=== PATIENT | male | born 1950 | race Caucasian/White ===

== ENCOUNTER 2019-01-25 11:02 | Inpatient (IN) ==
--- NOTE | 2019-01-10 15:56 | PAT Medication Instructions ---
Medication Instructions Date of Service January 10, 2019 Home Medications Atorvastatin 1 dose PO QPM ascorbic acid (vitamin C) [Vitamin 1 tab PO QAM aspirin [Aspir-81] 1 tab PO QAM cholecalciferol (vitamin D3) 1,000 unit PO QAM cyanocobalamin (vitamin B-12) 2,000 mcg PO QAM diclofenac sodium 50 mg PO BID dulaglutide [Trulicity] 1 dose SUBCUT WK insulin NPH isoph U-100 human 22 unit SUBCUT HS lisinopril 10 mg PO QAM metformin 1,000 mg PO BID omega 6-lsp-buh-fish oil [Fish Oil] 1 cap PO QAM Continue as directed dulaglutide [Trulicity] 1 dose SUBCUT WK ASK your surgeon for instructions diclofenac sodium 50 mg PO BID STOP taking 2 weeks before surgery (or as soon as possible if surgery is within 2 weeks) omega 7-xtc-vzr-fish oil [Fish Oil] 1 cap PO QAM DO NOT take the morning of surgery ascorbic acid (vitamin C) [Vitamin 1 tab PO QAM cholecalciferol (vitamin D3) 1,000 unit PO QAM cyanocobalamin (vitamin B-12) 2,000 mcg PO QAM lisinopril 10 mg PO QAM metformin 1,000 mg PO BID Take morning of surgery With a small sip of water, OTHERWISE NOTHING TO EAT OR DRINK AFTER MIDNIGHT: aspirin [Aspir-81] 1 tab PO QAM Take evening before surgery Atorvastatin 1 dose PO QPM insulin NPH isoph U-100 human 22 unit SUBCUT HS metformin 1,000 mg PO BID Other Notes If you have any questions please call us at [phone] or [phone] or [phone] or [phone]
--- NOTE | 2019-01-11 15:12 | XRay Report ---
XR chest Pre-admission PA/Lat CLINICAL HISTORY: Preoperative chest COMPARISON STUDY: No previous studies for comparison. FINDINGS: The cardiac and mediastinal contours are normal. There is no evidence of focal pulmonary co nsolidation. There is no evidence of failure. No pleural effusions are visualized.[ The patient appea rs mildly hyperexpanded. There is an azygos fissure. IMPRESSION: No active disease in the chest. Electronically signed by: Harry Agarwal M.D. 01/11/2019 3:11 PM
[2019-01-11 15:25] LABS: Basophils # (auto) 0.05 K/uL (0-0.2); Basophils % (auto) 0.6 %; Eosinophils # (auto) 0.21 K/uL (0-0.5); Eosinophils % (auto) 2.5 %; Hematocrit (blood only) 39.7 % (42-52); Hemoglobin 13.7 g/dL (14.0-18.0); Immature Granulocytes # (auto) 0.04 K/uL (0.00-0.02); Immature Granulocytes % (auto) 0.5 %; Lymphocytes # (auto) 1.99 K/uL (1.2-3.4); Lymphocytes % (auto) 23.5 %; Mean Corpuscular Hgb Conc 34.5 g/dL (32-36); Mean Corpuscular Volume 89.4 fL (80-100); Mean Platelet Volume 9.9 fL (7.4-10.4); Monocytes # (auto) 0.64 K/uL (0.11-0.59); Monocytes % (auto) 7.6 %; Neutrophils # (auto) 5.53 K/uL (1.4-6.5); Neutrophils % (auto) 65.3 %; Platelet Count 269 K/uL (130-400); RDW Standard Deviation 49.2 fL (36.4-46.3); Red Blood Count 4.44 M/uL (4.7-6.1); White Blood Count 8.46 K/uL (4.8-10.8)
[2019-01-11 15:26] LABS: Appearance Urine Clear (Clear); Bilirubin Urine Negative (Negative); Blood Urine Negative (Negative); Color Urine Yellow; Glucose Urine UA Negative (Negative); Ketones Urine Negative (Negative); Leukocyte Esterase Urine Negative (Negative); Nitrite Urine Negative (Negative); Protein Urine Negative (Negative); Specific Gravity Urine 1.024 (1.000-1.030); Urobilinogen Urine Negative (Negative)
[2019-01-11 15:35] LABS: Partial Thromboplastin Ratio 0.9; Partial Thromboplastin Time 24.6 Seconds (21.0-31.0); Prothrombin Time 10.5 Seconds (9.0-12.0)
--- NOTE | 2019-01-11 15:35 | Anesthesiology Consultation ---
Date of Service January 11, 2019 Assessment & Plan (1) Encounter for pre-operative examination: - PCP: 01/19/19: Mild anemia noted. "Using revised cardiac index, patient is estimated low risk of adverse outcome with noncardiac surgery. Patient is acceptable risk for surgery." - Check [facility] AM DOS Chart Review Chart Review: Acceptable Risk for Surgery and Patient seen in Pre Admission Testing Teaching & Discussion Pre-Anesthesia Teaching/Discussion Notes: Instructed NPO after midnight before surgery,except medications with 15 cc of water. Medication instructions pr ovided according to the PAT guidelines. History Surgery Operation Date: 01/25/19 13:05 Proposed Procedures p L3-S1 Decompression and Fusion, Spinal Cord Monitoring - Ezequiel Moore, Height/Weight Height: 5 ft 7 in Weight: 118.5 kg Allergies Allergy/AdvReac Type Severity Reaction Status Date / Time No Known Allergies Allergy Verified 01/25/19 11:30 Medications Home Medications Medication Instructions Recorded Confirmed Last Taken ascorbic acid (vitamin C) [Vitamin 1 tab PO QAM 01/07/19 01/07/19 01/11/19 C] aspirin [Aspir-81] 1 tab PO QAM 01/07/19 01/07/19 01/25/19 08:00 cholecalciferol (vitamin D3) 1,000 unit PO QAM 01/07/19 01/07/19 01/11/19 [Vitamin D3] cyanocobalamin (vitamin B-12) 2,000 mcg PO QAM 01/07/19 01/07/19 01/11/19 [Vitamin B-12] diclofenac sodium 50 mg PO BID 01/07/19 01/07/19 01/17/19 dulaglutide [Trulicity] 1 dose SUBCUT WK 01/07/19 01/07/19 01/22/19 insulin NPH isoph U-100 human 22 unit SUBCUT HS 01/07/19 01/07/19 01/24/19 21:00 [Humulin N NPH Insulin KwikPen] lisinopril 10 mg PO BID 01/07/19 01/25/19 01/24/19 21:00 metformin 1,000 mg PO BID 01/07/19 01/07/19 01/24/19 21:00 omega 3-zgd-ldc-fish oil [Fish Oil] 1 cap PO QAM 01/07/19 01/07/19 01/11/19 atorvastatin 20 mg PO PM 01/11/19 01/25/19 01/24/19 21:00 Active Medications Generic Name Dose Route Start Last Admin Trade Name Fede PRN Reason Stop Dose Admin Acetaminophen 1,000 mg 01/25/19 06:00 01/25/19 11:55 Tylenol PO 01/25/19 18:00 1,000 mg PREOP ADAM Administration Celecoxib 200 mg 01/25/19 06:00 01/25/19 11:55 Celebrex PO 01/25/19 18:00 200 mg PREOP ADAM Administration Gabapentin 300 mg 01/25/19 06:00 01/25/19 11:55 Neurontin PO 01/25/19 18:00 300 mg PREOP ADAM Administration Lactated Ringer's 1,000 mls @ 15 mls/hr 01/25/19 06:00 01/25/19 11:56 Lr IV 01/26/19 05:59 15 mls/hr .Q24H ADAM Administration Past Medical History Medical History Diabetes IDDM History of kidney stones History of prostate cancer S/P PROSTATECTOMY; +XRT (9+ YEARS AGO) Sleep apnea CPAP Spinal stenosis Exercise / Class Metabolic Activity III < 4 Walking/Shop/Light housework (USES CANE PRN) Past Surgical History Surgical History History of arthroscopy of left knee History of colonoscopy History of hernia surgery History of prostatectomy History of removal of cyst NECK RIGHT SIDE History of tonsillectomy History of total left hip arthroplasty Past Anesthesia History No Hx of Anesthesia Complications *Patient adopted- unknown family history* History of PONV No Hx of PONV and No Hx of Motion Sickness Social History Smoking Status: Current every day smoker tobacco type: pipe (DAILY USE) and cigars (DAILY USE) Do You Dip or Chew Tobacco: No Hx Alcohol Use: Yes (RARE) Alcohol type: beer alcohol intake frequency: holidays/special occasions only Hx Substance Use: Yes (HX OF MARIJUANA USE SEVERAL YEARS AGO) Review of Systems Patient reports LBP with RLE radiculopathy/neuropathy. Patient denies chest pain, shortness of breath, reflux, cough, wheezing, palpitations. Physical Exam Vital Signs Last Vital Signs Temp 37.0 C 01/25/19 11:40 Pulse 78 01/25/19 11:40 Resp 18 01/25/19 11:40 BP 116/82 01/25/19 11:40 Pulse Ox 97 01/25/19 11:40 VITALS BP 114/69 P 82 TEMP 97.4 SP02 94%RA RESP 20 PHYSICAL Full neck and c-spine range of motion. Full TMJ range of motion. TMD 4 finger breaths Mallampati Score 2 Dentition: lower partial Lungs: clear throughout to auscultation Cardiac: regular rate and rhythm, no murmurs noted Spine: normal Carotid arteries: negative bruit Extremities: no edema Thick neck Trimmed rosas Testing Electrocardiogram Date: 01/11/19 Findings: + NSR @ (81) Chest X-Ray Date: 01/11/19 Findings: + NAD The patient appears mildly hyperexpanded. There is an azygos fissure. Laboratory Results 01/11/19 14:55 01/11/19 14:55 PT 10.5 Seconds (9.0-12.0) 01/11/19 14:55 INR 1.0 (0.9-1.1) 01/11/19 14:55 APTT 24.6 Seconds (21.0-31.0) 01/11/19 14:55 Yellow 01/11/19 14:55 Clear (Clear) 01/11/19 14:55 5.0 (4.5-7.5) 01/11/19 14:55 Ur Specific Paton 1.024 (1.000-1.030) 01/11/19 14:55 Negative (Negative) 01/11/19 14:55 Negative (Negative) 01/11/19 14:55 Negative (Negative) 01/11/19 14:55 Negative (Negative) 01/11/19 14:55 Ur Leukocyte Esterase Negative (Negative) 01/11/19 14:55 Blood Type O Positive 01/11/19 14:55 Antibody Screen NEGATIVE 01/11/19 14:55 01/25/19 11:40 POC Glucose 138 H 09/01/18 HGBA1C 7.0% Due to header error, following labs header labels were missin01/11/19 UA negative
[2019-01-11 15:37] LABS: BUN Creatinine Ratio 26.6 (10-20); Creatinine Clr Calc Pharmacy 88.6 ml/min; Est GFR (African American) 89.4; Est GFR (Non-African American) 77.1; Potassium 4.7 mmol/L (3.5-5.1)
[~2019-01-25 11:02] MED LIST: ACETAMINOPHEN 500 MG TAB PO SCH; CEFAZOLIN 2000MG 2,000 MG/15 ML SYR IV SCH; CeleBREX 200 MG CAP PO SCH; GABAPENTIN 300 MG PO SCH; GABAPENTIN 300 MG x 2 PO SCH; LR 15ML/HR IV SCH; PROPOFOL IV EMULSION 10 MG/ML 100 ML VIAL IV ONE
[2019-01-25] MEDS ORDERED: ATROPINE SULFATE 0.1 MG/ML 10ML SYR IV PRN (12:19)
[2019-01-25] MEDS ORDERED: ONDANSETRON INJ 2 MG/ML 2 ML VIAL IV PRN ×2 (12:19→17:39)
[2019-01-25] MEDS ORDERED: LABETALOL HCL IV 5 MG/ML 20ML IV PRN (12:19)
[2019-01-25] MEDS ORDERED: fentaNYL citrate 100 MCG/2 ML VIAL ONE ×5 (12:28→15:58)
[2019-01-25] MEDS ORDERED: MIDAZOLAM HCL 1 MG/ML 2ML VIAL ONE (12:28)
--- NOTE | 2019-01-25 12:38 | History & Physical Bridge Note ---
Date of Service January 25, 2019 History & Physical Bridge Note I have examined the patient, reviewed the History & Physical and in the interval since the performance of the History & Physical I have noted the following changes of clinical significance: no changes noted
--- NOTE | 2019-01-25 12:39 | History & Physical Report ---
Date of Service January 25, 2019 Assessment & Plan (1) Neurogenic claudication due to lumbar spinal stenosis: L3-S1 decompression and fusion Present on Admission?: Yes History of Present Illness Chief Complaint: Back and bilateral leg pain Primary Care Provider: Eliceo Lofton MD This is a 68-year-old male with back and bilateral leg pain. After failing extensive course of nonoperative care is here for surgical intervention. Allergies Allergy/AdvReac Type Severity Reaction Status Date / Time No Known Allergies Allergy Verified 01/25/19 11:30 Home Medications Home Medications Medication Instructions Recorded Confirmed Type ascorbic acid (vitamin C) [Vitamin 1 tab PO QAM 01/07/19 01/07/19 History C] aspirin [Aspir-81] 1 tab PO QAM 01/07/19 01/07/19 History cholecalciferol (vitamin D3) 1,000 unit PO QAM 01/07/19 01/07/19 History [Vitamin D3] cyanocobalamin (vitamin B-12) 2,000 mcg PO QAM 01/07/19 01/07/19 History [Vitamin B-12] diclofenac sodium 50 mg PO BID 01/07/19 01/07/19 History dulaglutide [Trulicity] 1 dose SUBCUT WK 01/07/19 01/07/19 History insulin NPH isoph U-100 human 22 unit SUBCUT HS 01/07/19 01/07/19 History [Humulin N NPH Insulin KwikPen] lisinopril 10 mg PO BID 01/07/19 01/25/19 History metformin 1,000 mg PO BID 01/07/19 01/07/19 History omega 4-wna-cor-fish oil [Fish Oil] 1 cap PO QAM 01/07/19 01/07/19 History atorvastatin 20 mg PO PM 01/11/19 01/25/19 History Past Med/Surg History Medical History Diabetes IDDM History of kidney stones History of prostate cancer S/P PROSTATECTOMY; +XRT (9+ YEARS AGO) Sleep apnea CPAP Spinal stenosis Surgical History History of arthroscopy of left knee History of colonoscopy History of hernia surgery History of prostatectomy History of removal of cyst NECK RIGHT SIDE History of tonsillectomy History of total left hip arthroplasty Social History Preferred Language: Divehi Communication Ability: Effective Tar Chaser Required: No Beliefs That Will Affect Care: None Current Living Situation: Spouse Other Information That Helps Us Care for You: No Feels Safe at Home: Yes Smoking Status: Current every day smoker Tobacco Type: pipe (DAILY USE) and cigars (DAILY USE) Do You Dip or Chew Tobacco: No Tobacco Cessation Education Requested by Patient: No Hx Alcohol Use: Yes (RARE) Alcohol type: beer Hx Substance Use: Yes (HX OF MARIJUANA USE SEVERAL YEARS AGO) substance use type: does not use Physical Exam Vital Signs (Past 24 Hours): Last Vital Signs Temp 37.0 C 01/25/19 11:40 Pulse 78 01/25/19 11:40 Resp 18 01/25/19 11:40 BP 116/82 01/25/19 11:40 Pulse Ox 97 01/25/19 11:40 Physical Exam: Patient is neurologically intact alert and oriented.
[2019-01-25] MEDS ORDERED: BUPIVACAINE/EPINEPHRINE 0.5% MPF 1:200,000 30 ML VIAL ONE (12:48)
[2019-01-25] MEDS ORDERED: BACITRACIN INJ 50,000 UNIT VIAL ONE (12:48)
[2019-01-25] MEDS ORDERED: HYDROmorphone INJ 2 MG/ML SYR/VIAL ONE (13:25)
[2019-01-25] MEDS ORDERED: CEFAZOLIN 250 MG/ML 1 GM VIAL ONE (13:25)
[2019-01-25] MEDS ORDERED: LARYING-O-JET KIT (LTA) ONE (13:27)
[2019-01-25] MEDS ORDERED: DEXAMETHASONE SOD INJ 4 MG/ML VIAL ONE (13:27)
[2019-01-25] MEDS ORDERED: LIDOCAINE HCL 2% 2 ML VIAL/AMP(20MG/ML) INFIL ONE (13:27)
[2019-01-25] MEDS ORDERED: PHENYLEPHRINE 100MCG/ML 5ML SYR ONE (13:27)
[2019-01-25] MEDS ORDERED: METOCLOPRAMIDE HCL INJ 5 MG/ML 2 ML VIAL ONE (13:27)
[2019-01-25] MEDS ORDERED: ROCURONIUM BROMIDE 10 MG/ML 5 ML VIAL ONE (13:27)
[2019-01-25] MEDS ORDERED: NEOSTIGMINE METHYLSULFATE 1 MG/ML 10ML VIAL ONE (13:27)
[2019-01-25] MEDS ORDERED: GLYCOPYRROLATE 0.2 MG/ML VIAL ONE (13:27)
[2019-01-25] MEDS ORDERED: ONDANSETRON INJ 2 MG/ML 2 ML VIAL ONE (13:27)
[2019-01-25] MEDS ORDERED: PROPOFOL IV EMULSION 10 MG/ML 20 ML VIAL IV ONE (13:27)
[2019-01-25] MEDS ORDERED: VOLUVEN IN NSS IV ONE (13:42)
[2019-01-25] MEDS ORDERED: FLOSEAL HEMOSTATIC MATRIX 10ML TOP ONE (13:51)
[2019-01-25] MEDS ORDERED: ALBUMIN HUMAN 5% 12.5 GM/250 ML VIAL IV ONE (14:41)
[2019-01-25 15:46] LABS: Basophils # (auto) 0.02 K/uL (0-0.2); Basophils % (auto) 0.2 %; Eosinophils # (auto) 0.12 K/uL (0-0.5); Eosinophils % (auto) 1.1 %; Hematocrit (blood only) 30.4 % (42-52); Hemoglobin 10.2 g/dL (14.0-18.0); Immature Granulocytes # (auto) 0.09 K/uL (0.00-0.02); Immature Granulocytes % (auto) 0.8 %; Lymphocytes # (auto) 1.16 K/uL (1.2-3.4); Lymphocytes % (auto) 10.4 %; Mean Corpuscular Volume 90.7 fL (80-100); Mean Platelet Volume 9.6 fL (7.4-10.4); Monocytes # (auto) 0.31 K/uL (0.11-0.59); Monocytes % (auto) 2.8 %; Neutrophils # (auto) 9.42 K/uL (1.4-6.5); Neutrophils % (auto) 84.7 %; Platelet Count 223 K/uL (130-400); RDW Coefficient of Variation 14.3 % (11.5-14.5); RDW Standard Deviation 47.6 fL (36.4-46.3); Red Blood Count 3.35 M/uL (4.7-6.1); White Blood Count 11.12 K/uL (4.8-10.8)
--- NOTE | 2019-01-25 16:02 | Operative Report ---
Post Operative Report Pre & Post Diagnosis Operation Date: 01/25/19 13:05 Pre-Op Diagnosis: Lumbar spinal stenosis with neurogenic claudication. Morbid obesity. Post-Op Diagnosis: Same Procedure Operation Date: 01/25/19 13:05 Actual Procedures #1 lumbar decompression bilateral medial facetectomies foraminotomies L3-4 L4-5 L5-S1. #2 posterior spinal fusion L3-4 L4-5 L5-S1. #3 placement posterior segmental instrumentation using globus rods and screws L3-4 L4-5 L5-S1. #4 interbody fusion L4-5 L5-S1. #5 placement of titanium 13 x 26 mm cage at L4-5 and 12 x 26 mm cage at L5-S1. #6 placement of local autograft in the posterior lateral gutters. #7 placement infuse collagen sponge bone mass graft in the posterior lateral gutters and ostial amp and interbody space. Surgeon Ezequiel Moore, Gynecological Assistant Ailyn Palacios Estimated Blood Loss 1,200 Findings See Below Patient is 5 foot 6 inches and 116 kg with a BMI of 41.6. This combined with an EBL of 1200 cc created significant technical difficulty increasing the operative time by at least 50%. He did require our longus Kerrisons and deepest retractors to expose and perform the procedure. Specimens None Indications This is a 68-year-old male who presents with above-mentioned diagnosis. After failing extensive course of nonoperative care like to undergo the above- mentioned procedure. Description of Procedure Patient was met with identified and informed consent obtained. Patient was then taken to the operative suite underwent intubation placed in a prone position on the Thaddeus table on top of the Ge frame. All bony prominences well-padded eyes inspected to ensure no external pressure placed upon but this point lumbar spine was prepped and draped in normal sterile fashion. Sharp dissection with the assistance of Bovie cautery was performed down to and exposing the lamina and transverse processes of L3-L4-L5 and sacral ala bilaterally. From a caudal to cephalad fashion complete laminectomy of L5 L4 and L3 was performed including bilateral medial facetectomies and foraminotomies addressing severe spinal stenosis. Pedicle screws were then placed in L3-L4-L5 and S1 levels bilaterally with assistance of fluoroscopy and the appropriately size parish placed. By way of a transforaminal approach on the right complete discectomy of L5-S1 was performed endplates curetted to subcortical bleeding bone and a 12 x 26 mm titanium cage filled with ostium bone graft tapped in position. I then proceeded to L4-[address] of a transforaminal approach on the right complete discectomy was performed in plate graded to subcortical being bone and a 13 x 26 mm titanium cage filled with osteo-amp bone graft tapped in position. The rods were then locked in final position bilaterally. The transverse processes of L3-L4-L5 and the sacral ala bur to subcortical bleeding bone. Infuse collagen sponge mass graft local autograft placed in the posterior lateral gutters. 15 round ODESSA drain inserted. Incision was then closed with 1 Vicryl in the fascia 2-0 Vicryl subcutaneously and 4-0 Monocryl for final skin closure. Steri-Strips dressings placed. Patient will continue PACU stable condition. Please note Ailyn Palacios present at the entire procedure involved in patient positioning complex portions of the surgery and final skin closure. Lastly spinal cord monitoring was utilized and no changes noted. I attest to the content of the Intraoperative Record and any orders documented therein. Any exceptions are noted below.
--- NOTE | 2019-01-25 16:03 | Fluoroscopy Report ---
FL lumbar spine 2-3V CLINICAL HISTORY: L3-S1 DECOMPRESSION COMPARISON STUDY: None FLUOROSCOPY TIME: 28 seconds NUMBER OF FLUOROSCOPIC IMAGES: 3 FINDINGS: Image intensifier was utilized for an L3-S1 laminectomy and fusion. Disc spaces are present at L4-L5 and L5-S1. IMPRESSION: Image intensifier usage for an L3-S1 laminectomy and fusion. The above report was generated using voice recognition software. It may contain grammatical, syntax or spelling errors. Electronically signed by: Geoffrey Calvo M.D. 01/25/2019 4:02 PM
[2019-01-25 16:15] LABS: Mean Corpuscular Hgb Conc 33.6 g/dL (32-36)
[2019-01-25] MEDS: HYDROmorphone INJ 1 MG/ML SYRINGE IV PRN ×4 (16:40→16:55)
--- NOTE | 2019-01-25 17:11 | Anesthesiology Progress Note ---
Date of Service January 25, 2019 Anesthesia Post Procedure Vital Signs Vital Signs: Temp Pulse Pulse Resp BP Pulse Ox 01/25/19 17:00 85 16 118/58 L 98 01/25/19 16:50 82 16 108/62 98 01/25/19 16:40 77 16 125/66 98 01/25/19 16:30 76 16 109/61 98 01/25/19 16:20 36.2 C L 85 16 119/54 L 99 01/25/19 11:40 37.0 C 78 18 116/82 97 Transfer of Care Handoff Completed per policy Notes Mental Status: alert / awake / arousable and participated in evaluation Patient Amnestic to Procedure: Yes Nausea / Vomiting: adequately controlled Pain: adequately controlled Airway Patency, RR, SpO2: stable & adequate BP & HR: stable & adequate Hydration State: stable & adequate Anesthetic Complications: no major complications apparent and Pt Satisfied with anesthetic care
[2019-01-25] MEDS ORDERED: LORazepam 0.5 MG TAB PO PRN (17:39)
[2019-01-25] MEDS ORDERED: FAMOTIDINE 20 MG TAB PO PRN (17:39)
[2019-01-25] MEDS ORDERED: BISACODYL 10 MG SUPP PR PRN (17:39)
[2019-01-25] MEDS ORDERED: PROMETHAZINE HCL 12.5 MG in SODIUM CHLORIDE 0.9% 50 ML IV PRN (17:39)
[2019-01-25] MEDS ORDERED: SOD PHOSPHATE/SOD BIPHOSPHATE ENEMA 132 ML BTL PR PRN (17:39)
[2019-01-25] MEDS ORDERED: LORazepam 0.5 MG/1 ML VIAL IV PRN (17:39)
[2019-01-25] MEDS ORDERED: ONDANSETRON 4 MG TAB PO PRN (17:39)
[2019-01-25] MEDS ORDERED: HYDROmorphone INJ 0.5 MG/0.5 ML SYR IV PRN (17:39)
[2019-01-25] MEDS ORDERED: METOCLOPRAMIDE HCL INJ 5 MG/ML 2 ML VIAL IV PRN (17:39)
[2019-01-25] MEDS ORDERED: DO NOT ADMINISTER PNEUMOCOCCAL VACCINE PRN (17:39)
[2019-01-25] MEDS ORDERED: ALUMINUM/MAGNESIUM SUSP 30 ML UDC PO PRN (17:39)
[2019-01-25] MEDS ORDERED: MAGNESIUM HYDROXIDE SUSP 30 ML UDC PO PRN (17:39)
[2019-01-25] MEDS ORDERED: DO NOT ADMINISTER FLU VACCINE PRN (17:39)
[2019-01-25] MEDS ORDERED: ACETAMINOPHEN 500 MG TAB PO PRN (17:39)
[2019-01-25] MEDS ORDERED: ACETAMINOPHEN 1,000 MG/100 ML VIAL IV PRN (17:39)
[2019-01-25] MEDS ORDERED: TRAMADOL HCL 50 MG TABLET PO PRN (17:39)
[2019-01-25] MEDS: KETOROLAC TROMETHAMINE 15 MG/ML VIAL IV SCH (19:37)
[2019-01-25] MEDS: SODIUM CHLORIDE 0.9% 1000ML 1,000 ML IV SCH (19:37)
[2019-01-25] MEDS ORDERED: CARBOHYDRATES FOR HYPOGLYCEMIA PO PRN (20:44)
[2019-01-25] MEDS ORDERED: GLUCOSE 10 TABS/TUBE PO PRN (20:44)
[2019-01-25] MEDS ORDERED: GLUCOSE 40% GEL 15 GM TUBE PO PRN (20:44)
[2019-01-25] MEDS ORDERED: DEXTROSE 50% 50 ML SYRINGE IV PRN (20:44)
[2019-01-25] MEDS ORDERED: GLUCAGON FOR INJ 1 MG VIAL SQ PRN (20:44)
[2019-01-25] MEDS ORDERED: INSULIN HUMAN NPH SQ SCH (21:00)
[2019-01-25] MEDS: INSULIN HUMAN NPH SQ SCH (21:09)
[2019-01-25] MEDS: INSULIN ASPART 100 UNITS/ML 3 ML PEN SC SCH (21:10)
[2019-01-25] MEDS: DOCUSATE SODIUM/SENNA 50/8.6MG TAB PO SCH (21:16)
[2019-01-25] MEDS: LISINOPRIL 10 MG TAB PO SCH (21:16)
[2019-01-25] MEDS: ATORVASTATIN 20 MG TAB PO SCH (21:17)
[2019-01-25] MEDS: CEFAZOLIN 2000MG 2,000 MG/15 ML SYR IV SCH (21:54)
[2019-01-25] MEDS ORDERED: ARTIFICIAL TEARS OP PRN (22:02)
[2019-01-26] MEDS: KETOROLAC TROMETHAMINE 15 MG/ML VIAL IV SCH ×3 (00:11→12:31)
[2019-01-26] MEDS: SODIUM CHLORIDE 0.9% 1000ML 1,000 ML IV SCH (01:42)
[2019-01-26 06:15] LABS: Basophils # (auto) 0.01 K/uL (0-0.2); Basophils % (auto) 0.1 %; Hematocrit (blood only) 26.5 % (42-52); Hemoglobin 9.3 g/dL (14.0-18.0); Immature Granulocytes # (auto) 0.06 K/uL (0.00-0.02); Immature Granulocytes % (auto) 0.5 %; Lymphocytes # (auto) 0.94 K/uL (1.2-3.4); Lymphocytes % (auto) 7.3 %; Mean Corpuscular Hgb Conc 35.1 g/dL (32-36); Mean Corpuscular Volume 89.8 fL (80-100); Mean Platelet Volume 9.3 fL (7.4-10.4); Monocytes # (auto) 0.99 K/uL (0.11-0.59); Monocytes % (auto) 7.7 %; Neutrophils # (auto) 10.92 K/uL (1.4-6.5); Neutrophils % (auto) 84.4 %; Platelet Count 189 K/uL (130-400); RDW Coefficient of Variation 14.1 % (11.5-14.5); RDW Standard Deviation 47.2 fL (36.4-46.3); Red Blood Count 2.95 M/uL (4.7-6.1); White Blood Count 12.92 K/uL (4.8-10.8)
[2019-01-26 06:19] LABS: Estimated Average Glucose 160 mg/dl; Hemoglobin A1C 7.2 % (4.5-5.6)
[2019-01-26] MEDS: POLYETHYLENE (MIRALAX) 17 GM PACK PO SCH ×4 (06:22→22:16)
[2019-01-26] MEDS: CEFAZOLIN 2000MG 2,000 MG/15 ML SYR IV SCH (06:23)
[2019-01-26 06:53] LABS: BUN Creatinine Ratio 26.6 (10-20); Calcium 7.7 mg/dl (8.5-10.1); Creatinine Clr Calc Pharmacy 97.1 ml/min; Est GFR (African American) 102.8; Est GFR (Non-African American) 88.7; Potassium 4.4 mmol/L (3.5-5.1)
[2019-01-26] MEDS: OXYCODONE HCL IR 5 MG TAB (IMMEDIATE RELEASE) PO PRN ×3 (07:47→22:15)
[2019-01-26] MEDS ORDERED: PHENYLEPHRINE HCL 10 MG/ML VIAL ONE (08:13)
[2019-01-26] MEDS: ASCORBIC ACID 500 MG TAB PO SCH (08:44)
[2019-01-26] MEDS: CYANOCOBALAMIN 500 MCG TABLET (VITAMIN B-12) PO SCH (08:45)
[2019-01-26] MEDS: CHOLECALCIFEROL 1,000 UNITS TAB PO SCH (08:45)
[2019-01-26] MEDS: LISINOPRIL 10 MG TAB PO SCH ×2 (08:46→21:14)
[2019-01-26] MEDS: ASPIRIN 81 MG ECTAB PO SCH (08:46)
[2019-01-26] MEDS: INSULIN ASPART 100 UNITS/ML 3 ML PEN SC SCH ×4 (08:48→21:17)
--- NOTE | 2019-01-26 12:21 | Consultation ---
Date of Consultation January 26, 2019 Assessment & Plan (1) Neurogenic claudication due to lumbar spinal stenosis: - S/P L3-S1 Decompression/Fusion - Pain management, DVT prophylaxis, PT/OT, surgical management per primary - EBL 1200 and will trend CBC in AM - is asymptomatic and minimal change in labs from yesterday (2) Type 2 diabetes mellitus: - Hold Trulicity and Metformin - Cover with fixed insulin dosing and SSI for additional coverage - did have some higher readings likely from stress of surgery and preoperative steroids (3) JEFF on CPAP: - May use own CPAP (4) Essential hypertension: - Lisinopril 10 mg BID (5) Mixed hyperlipidemia: - Atorvastatin 20 mg daily Supervising Physician Co-Signing Physician Notes Attending note: patient seen and examined with Adina Cavazos PA-C. I agree with her HPI, history, exam, ROS and A/P. I personally reviewed the chart. Patient doing very well after spine surgery, up and ambulating with therapy, pain controlled. Eating well. - DM type II: hold oral agents, use Novolog SS, diabetic diet, monitor for hypoglycemia - HTN: BP low normal, hold Lisinopril if too low, check BMP in the morning - s/p decompression and fusion: management per Dr. Moore History of Present Illness Mr. Coffman is a 68 y/o male with PMHx of T2DM, HTN, HLD, JEFF on CPAP, and Prostate CA S/P Prostatectomy/Radiation (approx. 9 years ago) who is S/P L3-L5 decompression and fusion. Pt is doing extremely well post-operatively. Ambulating the halls, reports pain is under control, tolerating diet. Did have an EBL of 1200 but minimal decrease in Hgb and asymptomatic given blood loss. Attending Physician: Ezequiel Moore DO Allergies Allergy/AdvReac Type Severity Reaction Status Date / Time No Known Allergies Allergy Verified 01/25/19 11:30 Home Medications Home Medications Medication Instructions Recorded Confirmed Type ascorbic acid (vitamin C) [Vitamin 1 tab PO QAM 01/07/19 01/07/19 History C] aspirin [Aspir-81] 1 tab PO QAM 01/07/19 01/07/19 History cholecalciferol (vitamin D3) 1,000 unit PO QAM 01/07/19 01/07/19 History [Vitamin D3] cyanocobalamin (vitamin B-12) 2,000 mcg PO QAM 01/07/19 01/07/19 History [Vitamin B-12] diclofenac sodium 50 mg PO BID 01/07/19 01/07/19 History dulaglutide [Trulicity] 1 dose SUBCUT WK 01/07/19 01/07/19 History insulin NPH isoph U-100 human 22 unit SUBCUT HS 01/07/19 01/07/19 History [Humulin N NPH Insulin KwikPen] lisinopril 10 mg PO BID 01/07/19 01/25/19 History metformin 1,000 mg PO BID 01/07/19 01/07/19 History omega 9-twz-jpw-fish oil [Fish Oil] 1 cap PO QAM 01/07/19 01/07/19 History atorvastatin 20 mg PO PM 01/11/19 01/25/19 History oxycodone 5 mg PO Q4H PRN #30 tab 01/26/19 Rx tramadol 50 mg PO Q4H PRN #30 tab 01/26/19 Rx Patient History Medical History Diabetes IDDM History of kidney stones History of prostate cancer S/P PROSTATECTOMY; +XRT (9+ YEARS AGO) Sleep apnea CPAP Spinal stenosis Surgical History History of arthroscopy of left knee History of colonoscopy History of hernia surgery History of prostatectomy History of removal of cyst NECK RIGHT SIDE History of tonsillectomy History of total left hip arthroplasty Family History Other Family history non-contributory Social History Preferred Language: Italian Communication Ability: Effective Net Mender Required: No Beliefs That Will Affect Care: None marital status: Current Living Situation: Spouse Other Information That Helps Us Care for You: No Feels Safe at Home: Yes Smoking Status: Current every day smoker Tobacco Type: pipe (DAILY USE) and cigars (DAILY USE) Do You Dip or Chew Tobacco: No Tobacco Cessation Education Requested by Patient: No Hx Alcohol Use: Yes (RARE) Alcohol type: beer Hx Substance Use: Yes (HX OF MARIJUANA USE SEVERAL YEARS AGO) substance use type: does not use Review of Systems Constitutional: no fever and no chills Eyes: no worsening vision Ear, Nose, Mouth, Throat: no sore throat, no hoarseness and no dysphagia Respiratory: no cough and no dyspnea Cardiovascular: no chest pain, no palpitations, no lightheadedness and no edema Gastrointestinal: no abdominal pain, no nausea, no vomiting, no constipation a nd no diarrhea/loose stools Genitourinary: no dysuria Musculoskeletal: + back pain (controlled with pain medications) Integumentary: no rash Physical Exam Constitutional: WD/WN, vitals as above Eyes: + anicteric sclerae ENMT: Ears: no hearing impairment Neck: normal visual inspection and trachea midline Respiratory: normal respiratory effort, lungs clear to auscultation Cardiovascular: RRR, no murmur, no edema Gastrointestinal (Abdomen): Inspection/Auscultation: normal bowel sounds Percussion/Palpation: abdomen soft; abdomen nontender Skin: no rashes, warm and dry Neurologic: moves all extremities Psychiatric: A+Ox3, euthymic affect Results & Data Vital Signs (Past 12 Hours) Vital Signs Temp Pulse Pulse Resp BP Pulse Ox 01/26/19 11:58 36.7 C 71 18 122/78 98 01/26/19 07:38 36.5 C 71 16 140/84 98 01/26/19 03:01 36.4 C L 75 14 102/67 96
--- NOTE | 2019-01-26 12:48 | Orthopedic Progress Note ---
Date of Service January 26, 2019 Assessment & Plan (1) Neurogenic claudication due to lumbar spinal stenosis: Continue physical therapy monitor his ODESSA output discontinue ODESSA drain hopefully next few days. Present on Admission?: Yes Subjective Back pain is controlled leg symptoms markedly improved. Physical Exam Physical Exam: Patient is sitting in chair at the bedside. Is good strength testing. Results & Data Vital Signs (Past 12 Hours) Vital Signs Temp Pulse Pulse Resp BP Pulse Ox 01/26/19 11:58 36.7 C 71 18 122/78 98 01/26/19 07:38 36.5 C 71 16 140/84 98 01/26/19 03:01 36.4 C L 75 14 102/67 96
[2019-01-26] MEDS: ATORVASTATIN 20 MG TAB PO SCH (21:13)
[2019-01-26] MEDS: DOCUSATE SODIUM/SENNA 50/8.6MG TAB PO SCH (21:14)
[2019-01-26] MEDS: INSULIN HUMAN NPH SQ SCH (21:14)
[2019-01-27] MEDS: POLYETHYLENE (MIRALAX) 17 GM PACK PO SCH ×4 (05:56→23:38)
[2019-01-27] MEDS: OXYCODONE HCL IR 5 MG TAB (IMMEDIATE RELEASE) PO PRN ×4 (06:01→21:21)
[2019-01-27 06:16] LABS: Hematocrit (blood only) 27.8 % (42-52); Hemoglobin 9.5 g/dL (14.0-18.0); Mean Corpuscular Hgb Conc 34.2 g/dL (32-36); Mean Corpuscular Volume 90.3 fL (80-100); Mean Platelet Volume 9.4 fL (7.4-10.4); Platelet Count 197 K/uL (130-400); RDW Coefficient of Variation 14.5 % (11.5-14.5); RDW Standard Deviation 48.1 fL (36.4-46.3); Red Blood Count 3.08 M/uL (4.7-6.1); White Blood Count 12.68 K/uL (4.8-10.8)
[2019-01-27 06:47] LABS: BUN Creatinine Ratio 20.6 (10-20); Est GFR (African American) 74.1; Est GFR (Non-African American) 63.9
[2019-01-27] MEDS: ASCORBIC ACID 500 MG TAB PO SCH (08:17)
[2019-01-27] MEDS: ASPIRIN 81 MG ECTAB PO SCH (08:17)
[2019-01-27] MEDS: CYANOCOBALAMIN 500 MCG TABLET (VITAMIN B-12) PO SCH (08:17)
[2019-01-27] MEDS: CHOLECALCIFEROL 1,000 UNITS TAB PO SCH (08:18)
[2019-01-27] MEDS: LISINOPRIL 10 MG TAB PO SCH ×2 (08:18→22:45)
[2019-01-27] MEDS: INSULIN ASPART 100 UNITS/ML 3 ML PEN SC SCH ×4 (09:04→21:24)
--- NOTE | 2019-01-27 11:16 | Orthopedic Progress Note ---
Date of Service January 27, 2019 Assessment & Plan (1) Neurogenic claudication due to lumbar spinal stenosis: This time we will continue physical therapy monitor his ODESSA output anticipate discharge home tomorrow. Present on Admission?: Yes Subjective Patient's back pain is controlled leg symptoms markedly improved. Physical Exam Physical Exam: On exam he is in the chair at the bedside. Is good strength testing. Results & Data Vital Signs (Past 12 Hours) Vital Signs Temp Pulse Resp BP Pulse Ox 01/27/19 07:19 37.2 C 102 H 18 99/63 L 94 01/26/19 23:38 37.2 C 95 H 16 111/73 97
--- NOTE | 2019-01-27 14:04 | Hospitalist Progress Note ---
Date of Service January 27, 2019 Assessment & Plan (1) Neurogenic claudication due to lumbar spinal stenosis: - S/P L3-S1 Decompression/Fusion - Pain management, DVT prophylaxis, PT/OT, surgical management per primary - EBL 1200 and Hgb trending up - is asymptomatic from anemia standpoint (2) Type 2 diabetes mellitus: - Hold Trulicity and Metformin - Cover with fixed insulin dosing and SSI for additional coverage - did have some higher readings likely from stress of surgery and preoperative steroids (3) JEFF on CPAP: - May use own CPAP (4) Essential hypertension: - Lisinopril 10 mg BID (5) Mixed hyperlipidemia: - Atorvastatin 20 mg daily (6) DVT prophylaxis: - Ambulation/TEDs/SCDs Disposition: Stable from a chronic medical perspective. May continue all home medications on discharge. Hospitalist services will sign off at this time. Please do not hesitate to contact us for questions or acute changes in medical condition. Subjective Reports feeling well. Some increased pain upon awakening this AM but improving with medications and walking. Hgb slightly trending up. Remains asymptomatic from anemia standpoint. Anticipating D/C home tomorrow Review of Systems Constitutional: no fever and no chills Respiratory: no cough and no dyspnea Cardiovascular: no chest pain, no palpitations, no lightheadedness and no edema Gastrointestinal: no abdominal pain, no nausea, no vomiting, no constipation and no diarrhea/loose stools Genitourinary: no dysuria Musculoskeletal: + back pain (controlled with pain medications) Integumentary: no rash Neurologic: + numbness (mild in feet - similar to pre-op - no worsening or new symptoms) Physical Exam Constitutional: WD/WN, vitals as above Eyes: + anicteric sclerae ENMT: Ears: no hearing impairment Neck: normal visual inspection and trachea midline Respiratory: normal respiratory effort, lungs clear to auscultation Cardiovascular: RRR, no murmur, no edema Gastrointestinal (Abdomen): Inspection/Auscultation: normal bowel sounds Percussion/Palpation: abdomen soft; abdomen nontender Musculoskeletal: ODESSA drain present draining bloody serosang fluid Skin: no rashes, warm and dry Neurologic: moves all extremities Psychiatric: A+Ox3, euthymic affect Results & Data Vital Signs (Past 12 Hours) Vital Signs Temp Pulse Resp BP Pulse Ox 01/27/19 07:19 37.2 C 102 H 18 99/63 L 94
[2019-01-27] MEDS: DOCUSATE SODIUM/SENNA 50/8.6MG TAB PO SCH (21:22)
[2019-01-27] MEDS: ATORVASTATIN 20 MG TAB PO SCH (21:22)
[2019-01-27] MEDS: INSULIN HUMAN NPH SQ SCH (21:26)
[2019-01-27] MEDS ORDERED: SODIUM CHLORIDE 0.9% 1000ML 500 ML IV ONE (22:44)
[2019-01-28] MEDS: POLYETHYLENE (MIRALAX) 17 GM PACK PO SCH ×2 (05:25→12:21)
[2019-01-28] MEDS: OXYCODONE HCL IR 5 MG TAB (IMMEDIATE RELEASE) PO PRN ×2 (07:45→13:54)
[2019-01-28] MEDS ORDERED: TRULICITY~ORDER AWAITING ACTION SCH (08:00)
[2019-01-28] MEDS: LISINOPRIL 10 MG TAB PO SCH (08:29)
[2019-01-28] MEDS: ASCORBIC ACID 500 MG TAB PO SCH (08:30)
[2019-01-28] MEDS: CHOLECALCIFEROL 1,000 UNITS TAB PO SCH (08:30)
[2019-01-28] MEDS: ASPIRIN 81 MG ECTAB PO SCH (08:30)
[2019-01-28] MEDS: CYANOCOBALAMIN 500 MCG TABLET (VITAMIN B-12) PO SCH (08:30)
[2019-01-28] MEDS: INSULIN ASPART 100 UNITS/ML 3 ML PEN SC SCH ×2 (08:47→12:43)
--- NOTE | 2019-01-28 15:50 | Discharge Summary ---
Date of Service January 28, 2019 Admission HPI Per Admitting Provider This is a 68-year-old male with back and bilateral leg pain. After failing extensive course of nonoperative care is here for surgical intervention. Principal Diagnosis Lumbar spinal stenosis with neurogenic claudication Discharge Data Allergies Allergy/AdvReac Type Severity Reaction Status Date / Time No Known Allergies Allergy Verified 01/25/19 11:30 Consultations 01/25/19 17:39 Consult Case Management - Discharge Planning Routine Consult Hospitalist Routine Procedures Performed Operation Date: 01/25/19 13:05 Actual Procedures p L3-S1 Decompression and Fusion, Spinal Cord Monitoring, Interbody Cage Insertion L4-L5, L5-S1(Not Applicable) - Ezequiel Moore DO Ordered Studies 01/25/19 13:05 FL fluoroscopy <1hr Routine FL lumbar spine 2-3V Routine Hospital Course (1) Neurogenic claudication due to lumbar spinal stenosis: Patient underwent lumbar decompression fusion tolerated as well as taken to orthopedic for postoperative. Postop day 1 he is up and ambulating nicely progressed to postop day 2 postop #3 he was discharged home. Discharge orders and instructions found chart for further review. Total Time Total Time Spent Total Time Spent (In Minutes): 20 minutes Discharge Plan Discharge Items Patient Disposition: Home - Self-Care Reason For Visit: Spinal Stenosis, Lumbar Region with Neurogenic Cla Discharge Diagnosis: lumbar stenosis Discharge Goals: Improve function Activity: Per 'Additional Instructions' section Non-emergency contact: Primary Care Provider Call non-emergency contact if: you have any medication questions Follow-up/Referrals: Eliceo Lofton MD [Primary Care Provider] - Diet: Regular Addtl Provider Instructions: ACTIVITY RECOMMENDATIONS: SELF CARE INSTRUCTIONS AFTER THORACIC/LUMBAR FUSIONS 1. You may walk to your tolerance. It is good exercise for your legs and back. Expect some back and intermittent leg aches and pains. 2. You may perform "counter-top" level activities (make a sandwich, kenna with a project, etc.). 3. No bending or lifting of more than 10 pounds or back twisting of any nature (roll like a log when turning in bed). 4. You may ride in a car for 20-30 minutes at a time. No driving until after your first visit with your doctor. 5. Frequent changes of position and restricting sitting to 30 minutes at a time will help limit the amount of back spasms and stiffness you may experience. 6. You may discontinue the use of ambulatory aids (cane, crutches, etc.) once your strength and confidence allow. 7. You may proof inspector the shower and let water strike your incision when you arrive home at least once daily. Do not take a tub bath, sit in a hot tub or go into a swimming pool until after your first recheck in the office. SPECIAL CARE INSTRUCTIONS: VERY IMPORTANT TO READ AND REVIEW A. Your surgical incision has been closed with a cosmetic suture under the skin that will dissolve in about 6 weeks. In 14 days, you can use a pair of clean scissors and cut the suture that is left outside of the skin at the ends of your incision. 1. The small skin tapes can be removed 7 days after surgery if they have not fallen off by that point. 2. You may keep the wound open to air as much as possible to promote healing after post-op day number 5 unless told otherwise by your doctor. 3. If you think the wound looks like it is becoming infected (redness or worsening drainage) and/or you are experiencing fever, chill or worsening back pain and muscle spasms, contact the office so that we may evaluate you as soon as possible. B. Complications are uncommon, but please contact us if you have any signs or symptoms of: 1. wound infection (fever higher than 102.5 degrees F, redness, separation of wound, drainage, or increasing pain from the incision) 2. blood clots in legs (pain, swelling, redness and warmth in legs) 3. urinary tract infection (fever higher than 102.5 degrees F, burning upon urination or increased frequency of urination) 4. nerve problems (inability to walk on your toes or heels, numbness, loss of bowel or bladder control) 5. any other symptoms that concern you C. Please call the office at if you have any concerns or questions about your operation or recovery. D. No smoking! Smoking drastically decreases the chance of a solid fusion. E. Do not take any anti-inflammatory medications (Indocin, Advil, Motrin, Aspirin, Naprosyn, etc.) as these may inhibit the chance of a solid fusion. Tylenol is okay to take for pain. MANAGING PAIN AFTER SPINAL SURGERY 1. Narcotic medication is intended for short-term use and will be provided for surgical pain. Surgical pain usually lasts for a period of 4-6 weeks. Narcotic medication includes Percocet, Vicodin, Darvocet, Tylenol #3 or Lortab. 2. Longer-term pain is more appropriately treated with non-narcotic medication such as Tylenol ES. 3. Muscle spasm is not appropriately treated with narcotics. Muscle relaxers such as Soma, Flexeril or Skelaxin can be used along with Tylenol ES. 4. Remember that we all live with some "aches and pains". This is not unusual or uncommon after an injury or as we get older. a. Back pain is expected and may include muscle spasms for 4 to 6 weeks after surgery. The pain should gradually improve. If the pain worsens for no apparent reason, please contact the office. b. Intermittent leg pain may also be experienced and should not be concerned about unless it worsens for no apparent reason. If so, please contact the office. 5. We will provide appropriate medication within the normal guidelines of their prescribed use. We will also be very cautious and aware of potential abuse and extended duration of patients' medication needs. a. Pain medications are for your comfort and to assist with sleep and rest so that the tissue can heal. They are not provided in order to return to normal activity and should not be used through the day. To do so or worsening pain at night can result from ongoing tissue damage and development of tolerance to the prescribed medicine. 6. Please allow 2-3 days to process refills. Prescriptions will not be mailed but must be picked up at the office. FOLLOW UP VISIT: Keep your scheduled follow-up appointment. Any questions, please call the office at . Prescriptions: New tramadol 50 mg Tablet 50 mg PO Q4H PRN (Reason: Pain, Moderate) Qty: 30 RF: 0 oxycodone 5 mg Tablet 5 mg PO Q4H PRN (Reason: Pain, Severe) Qty: 30 RF: 0 Continued ascorbic acid (vitamin C) [Vitamin C] 1,000 mg Tablet 1 tab PO QAM RF: 0 aspirin [Aspir-81] 81 mg Tablet,Delayed Release (Dr/Ec) 1 tab PO QAM RF: 0 metformin 1,000 mg Tablet 1,000 mg PO BID RF: 0 lisinopril 10 mg Tablet 10 mg PO BID RF: 0 cyanocobalamin (vitamin B-12) [Vitamin B-12] 2,000 mcg Tablet Extended Release 2,000 mcg PO QAM RF: 0 cholecalciferol (vitamin D3) [Vitamin D3] 1,000 unit Capsule 1,000 unit PO QAM RF: 0 Humulin N NPH Insulin KwikPen 100 unit/mL (3 mL) Insulin Pen 22 unit SUBCUT HS RF: 0 omega 9-ghd-[id number]-fish oil [Fish Oil] 1,000 mg (120 mg-180 mg) Capsule 1 cap PO QAM RF: 0 Trulicity 1.5 mg/0.5 mL Pen Injector 1 dose SUBCUT WK RF: 0 atorvastatin 20 mg Tablet 20 mg PO PM RF: 0 Discontinued diclofenac sodium 50 mg Tablet,Delayed Release (Dr/Ec) 50 mg PO BID RF: 0 Stand-Alone Forms: [facility]Other Patient Handouts: Surgery Prevent DVT After Discharge Orders: Discharge Order (Routine); Ordered 01/28/19 Ordered By: Ezequiel Moore Admission Data Admit Date/Time: 01/25/19 16:06 Attending Provider: Ezequiel Moore Admit Provider: Ezequiel Moore Primary Care Provider: Eliceo Lofton Other Providers: Adán Reeder Service: Surgical Services Other Interventions: Discharge Summary Assessment (RN) Last Done: 01/28/19 12:03 DC Date/Time DO NOT enter until pt leaves facility: 01/28/19 14:25
== END 2019-01-28 14:25 | disposition home or self-care (01) | DRG 454 ==
LOC: ASU 11:02 → 3E 16:06